=== PATIENT | male | born 1955 | race Caucasian/White ===

== ENCOUNTER 2023-06-07 06:20 | Day surgery (SDC) | payer MEDICARE, OTHER, SELFPAY ==
[2023-06-07 10:11] VITALS: BMI 33.8
[2023-06-07 10:12] VITALS: BMI 33.8
[2023-06-07 10:13] VITALS: BP 157/70
[2023-06-07 13:40] VITALS: BP 112/65
[2023-06-07 13:50] VITALS: BP 118/59
[2023-06-07 14:00] VITALS: BP 123/58
== END 2023-06-07 14:20 | disposition home or self-care (01) ==
LOC: SDS 06:20
PROVIDERS: ATTENDING PHYSICIAN Internal Medicine Gastroenterology
DX: D12.0 Benign neoplasm of cecum (principal); K64.0 First degree hemorrhoids
CPT/HCPCS: 45390; 88305

== ENCOUNTER → 2023-12-13 06:38 | Day surgery (SDC) | payer MEDICARE, OTHER, SELFPAY ==
[2023-12-13 11:37] VITALS: BMI 34.9
[2023-12-13 11:38] VITALS: BP 127/87; BMI 34.9
[2023-12-13 13:40] VITALS: BP 103/70
[2023-12-13 13:45] VITALS: BP 120/71
[2023-12-13 14:00] VITALS: BP 122/62
== END ==
LOC: SDS 06:38
PROVIDERS: ATTENDING PHYSICIAN Internal Medicine Gastroenterology
DX: Z12.11 Encounter for screening for malignant neoplasm of colon (principal); D12.0 Benign neoplasm of cecum; D12.2 Benign neoplasm of ascending colon; D12.3 Benign neoplasm of transverse colon; K64.0 First degree hemorrhoids; Z86.0101 Personal history of adenomatous and serrated colon polyps; Z98.890 Other specified postprocedural states
CPT/HCPCS: 45388; 45385; 88305